=== PATIENT | female | born 1980 | race Caucasian/White ===

== ENCOUNTER 2020-08-03 09:27 | Inpatient (IN) | payer OTHER ==
[~2020-08-03] VITALS: Ht 152.4 cm; Wt 67.2 kg
--- NOTE | ~2020-08-03 | PROC ---
[address] [address] PROCEDURE REPORT Name: CALIXTO HALE Room: [address] IN M.R.#: [id number] Admission: 08/03/20 Attend Phys: Karthik Huber MD Discharge: 08/05/20 Date of : 84 Report #: [id number] THIS REPORT FOR: cc: FAM - No family physician/PCP FAM - No family physician/PCP ~ [facility],Medical Records Staff For GI report, please see the Provation report in Perceptive 7 content. By: 1452Medical Records Staff [facility] /MARGARITA
[2020-08-03 09:38] VITALS: BP 118/61
[2020-08-03 09:52] LABS: HEMATOCRIT 27.5 % (37.0-47.0); HEMOGLOBIN 9.2 gm/dL (12.0-15.0); MCH 32.5 pg (26.0-34.0); MCHC 33.6 g/dL (28.0-37.0); MCV 96.8 fL (80.0-100.0); MPV 8.5 fl. (7.2-11.1); NUCLEATED RBCS 0 /100WBC; PLATELET COUNT* 258 thou/uL (150-400); RBC 2.84 mil/uL (4.20-5.00); RDW-CV 21.1 % (10.5-14.5); WBC 27.2 thou/uL (4.0-11.0)
[2020-08-03 10:12] LABS: CALCIUM 8.4 mg/dL (8.5-10.1); POTASSIUM 4.1 mmol/L (3.5-5.1)
[2020-08-03 10:13] LABS: URINE BLOOD NEGATIVE (Negative); URINE COLOR YELLOW; URINE GLUCOSE-RANDOM TRACE (Negative); URINE KETONES NEGATIVE (Negative); URINE LEUKOCYTES-REFLEX NEGATIVE (Negative); URINE NITRITE-REFLEX NEGATIVE (Negative); URINE PROTEIN NEGATIVE (Negative); URINE SPECIFIC GRAVITY >= 1.030 (1.005-1.030); URINE UROBILINOGEN 0.2 E.U./dl (0.2-1.0)
[2020-08-03 10:17] LABS: ICTOTEST (BILI CONFIRMATORY) Positive (Negative); URINE BILIRUBIN 2+ (Negative); URINE CLARITY HAZY
[2020-08-03 10:24] LABS: AMORPHOUS URATES Many /LPF (None Seen); BACTERIA-REFLEX 1-9 Few /HPF (None Seen); CASTS None Seen /LPF (None Seen); MUCUS 0-3 Light strn/LPF (None Seen); SQUAMOUS 0-3 Few /LPF (0-3); URINE RBC 0-2 Rare /HPF (0-2); URINE WBC-REFLEX 0-5 Rare /HPF (0-5)
[2020-08-03 10:25] LABS: ALBUMIN 1.7 g/dL (3.4-5.0); TOTAL BILIRUBIN 26.6 mg/dL (<0.1-1.0); TOTAL PROTEIN 6.7 g/dL (6.4-8.2)
[2020-08-03 10:38] LABS: ABSOLUTE BASOPHILS 0.3 thou/uL (0.0-0.2); ABSOLUTE LYMPHOCYTES 1.4 thou/uL (0.8-5.3); ABSOLUTE NEUTROPHILS 22.6 thou/uL (1.6-8.1); HYPOCHROMASIA 1+; PLATELET ESTIMATE ADEQUATE; TARGET CELLS 1+
[2020-08-03 10:39] LABS: ANISOCYTOSIS 1+; POIKILOCYTOSIS 1+
[2020-08-03 11:26] LABS: APTT 59.3 Seconds (25.0-31.3); INR 2.1; PROTIME 21.6 Seconds (9.20-11.50)
[2020-08-03] MEDS ORDERED: ANTIBIOTIC (11:50)
[2020-08-03] MEDS ORDERED: GABAPENTIN100 MG PO (11:50)
[2020-08-03] MEDS ORDERED: LASIX 20 MG TAB20 MG PO (11:50)
[2020-08-03] MEDS ORDERED: LEXAPRO20 MG PO (11:50)
[2020-08-03] MEDS ORDERED: SPIRONOLACTONE50 MG PO (11:50)
[2020-08-03 13:54] LABS: URINE POTASSIUM-RANDOM 61.3 mmol/L
[2020-08-03 15:11] VITALS: BP 98/32
[2020-08-03 16:32] LABS: BF RBC <1000 /mm3; TOTAL CELL COUNT 30 /mm3
[2020-08-03 16:53] LABS: CLARITY SLIGHTLY HAZY; TOTAL VOLUME 4800 ml
[2020-08-03 16:58] VITALS: BP 103/63
--- NOTE | 2020-08-03 16:58 | EKG ---
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 : 1980 Requested By: Joon Cardenas Order Number: [id number] MD: Dez Cordoba Measurements Intervals [place] Rate: 101 P: 35 OR: 137 QRS: 7 QRSD: 90 T: 11 QT: 363 QTc: 471 Interpretive Statements Sinus tachycardia Borderline T abnormalities, inferior leads Baseline wander in lead(s) II,III,aVF No previous ECG available for comparison Electronically Signed On 08-03-2020 16:58:10 [employer] DEVELOPER by Dez Cordoba [email or web address] <ELECTRONICALLY SIGNED> By: Dez Cordoba MD, [facility] 08/03/20 1658 0941 0941 Dez Cordoba MD, [facility] /EPI
[2020-08-03 17:12] LABS: BF LYMPHOCYTES 54 %; BF MONOCYTES 41 %; BF POLYS 5 %; BF TISSUE 11 /100 WBC; SOURCE ASCITES
[2020-08-03 20:00] VITALS: BP 84/33
[2020-08-04] VITALS (13 sets, daily range): BP systolic 47–112; BP diastolic 14–52
[2020-08-04 04:09] LABS: ABSOLUTE BASOPHILS 0.3 thou/uL (0.0-0.2); ABSOLUTE EOSINOPHILS 0.4 thou/uL (0.0-0.7); ABSOLUTE LYMPHOCYTES 3.1 thou/uL (0.8-5.3); ABSOLUTE MONOCYTES 1.7 thou/uL (0.0-1.2); ABSOLUTE NEUTROPHILS 22.9 thou/uL (1.6-8.1); BASOPHILS 1.2 %; EOSINOPHILS 1.4 %; LYMPHOCYTES 10.8 %; MCH 32.7 pg (26.0-34.0); MCHC 33.1 g/dL (28.0-37.0); MCV 98.7 fL (80.0-100.0); MPV 8.5 fl. (7.2-11.1); NUCLEATED RBCS 0 /100WBC; PLATELET COUNT* 199 thou/uL (150-400); POLYS 80.6 %; RBC 1.85 mil/uL (4.20-5.00); RDW-CV 21.4 % (10.5-14.5); WBC 28.4 thou/uL (4.0-11.0)
[2020-08-04 04:43] LABS: CALCIUM 7.7 mg/dL (8.5-10.1); POTASSIUM 4.7 mmol/L (3.5-5.1)
[2020-08-04 04:46] LABS: CREATININE 4.1 mg/dL (0.6-1.3)
[2020-08-04 05:08] LABS: HEMATOCRIT 18.3 % (37.0-47.0); HEMOGLOBIN 6.1 gm/dL (12.0-15.0)
[2020-08-04 06:28] LABS: ANISOCYTOSIS 1+; PLATELET ESTIMATE ADEQUATE
[2020-08-04 09:06] LABS: MCH 33.1 pg (26.0-34.0); MCHC 32.3 g/dL (28.0-37.0); MCV 102.4 fL (80.0-100.0); RBC 1.73 mil/uL (4.20-5.00); WBC 34.7 thou/uL (4.0-11.0)
[2020-08-04 09:12] LABS: HEMATOCRIT 17.7 % (37.0-47.0); HEMOGLOBIN 5.7 gm/dL (12.0-15.0)
--- NOTE | 2020-08-04 14:24 | CON ---
[address] [address] CONSULTATION Name: ALEXIACALIXTO Roya Room: [address] IN M.R.#: [id number] Admission: 08/03/20 Attend Phys: Karthik Huber MD Discharge: Date of : 84 Report #: [id number] THIS REPORT FOR: cc: FAM - No family physician/PCP FAM - No family physician/PCP ~ Lisbeth Willis MD DATE OF SERVICE: 08/04/2020 GI CONSULTATION CONSULTING PHYSICIAN: Lisbeth Willis MD. PCP: She is followed at [facility] and has no primary care provider. The patient was personally seen and examined by me. REASON FOR CONSULTATION: GI bleed, hyperbilirubinemia and ascites. HISTORY OF PRESENT ILLNESS: The patient is a 40-year-old who presented to the Emergency Department with jaundice and abdominal discomfort with distention. She states that she is being followed at [facility] over the last 2 or more months for abdominal pain and discomfort and she has a history of having a paracentesis done previously. She is fully aware that she has end-stage liver failure. She admits to excessive amounts of drinking of at least 1 bottle of wine and several shots of hard liquor daily. She is complaining of significant abdominal pain and tenderness and has lower extremity edema. She is very jaundiced at this point. She has continued to drink heavily despite being aware of her ongoing liver failure. She reports that her father 2 years ago and over the last 5-6 months, her alcohol intake has increased significantly. She also reports that she has had nausea with associated vomiting with reports of blood and coffee-ground emesis. PAST MEDICAL HISTORY: Significant for hysterectomy, 4 live births, and paracentesis performed at [facility]. PAST SOCIAL HISTORY: As stated before, a bottle of wine and at least 2 shots daily. ALLERGIES: No known allergies. PHYSICAL ASSESSMENT: HEART: Rate and rhythm are regular. 1+ dorsalis pedis pulses, 2+ radial pulses. LUNGS: Clear [place] [address] CONSULTATION Name: CALIXTO HALE Room: [address] IN [facility]#: [id number] Admission: 08/03/20 Attend Phys: Karthik Huber MD Discharge: Date of : 84 Report #: [id number] GASTROINTESTINAL: Abdomen is severely distended, positive fluid wave. LOWER EXTREMITIES: 2+ edema, jaundice. 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 MELD score is 40 showing a 71.3% mortality over the next 3 months. Her disseminated fraction score was 75. LABORATORY DATA: Bilirubin 26.6. White blood cell count 28.4, hemoglobin 5.7, platelets 199. Ammonia less than 10. BUN 48, creatinine 4.1, GFR 12. INR 2.1. AST 204, ALT 27, alkaline phosphatase 216, albumin 1.7. Sodium currently 132. ASSESSMENT: 1. Acute gastrointestinal bleed. 2. Nausea and vomiting with blood and coffee-ground emesis. 3. End-stage liver disease. 4. Large ascites with previous paracentesis at [facility]. PLAN: 1. EGD for assessment of acute upper GI bleed and varices. 2. Transfuse red blood cells. 3. Octreotide IV infusion continuous. 4. Continuous Protonix infusion. 5. Possible palliative consult. Thank you for allowing us to participate in the care of this kind 40-year-old female patient. Further recommendations to be made after the EGD today with Dr. Willis and blood transfusion. <ELECTRONICALLY SIGNED> By: Lisbeth Willis MD 08/04/20 1424 0926 0949Lisbeth Willis MD /nt
[2020-08-04 15:44] LABS: EOSINOPHILS 0.5 %; HEMATOCRIT 24.6 % (37.0-47.0); LYMPHOCYTES 9.5 %; MCH 31.6 pg (26.0-34.0); MCHC 32.1 g/dL (28.0-37.0); MCV 98.6 fL (80.0-100.0); MONOCYTES 3.1 %; MPV 8.9 fl. (7.2-11.1); NUCLEATED RBCS 0 /100WBC; PLATELET COUNT* 207 thou/uL (150-400); POLYS 85.9 %; RDW-CV 19.8 % (10.5-14.5)
[2020-08-04 15:49] LABS: PROTIME 29.8 Seconds (9.20-11.50)
[2020-08-04 15:55] LABS: ALBUMIN 1.5 g/dL (3.4-5.0); CREATININE 4.6 mg/dL (0.6-1.3); TOTAL BILIRUBIN 21.4 mg/dL (<0.1-1.0); TOTAL PROTEIN 4.5 g/dL (6.4-8.2)
[2020-08-04 16:06] LABS: ABSOLUTE BASOPHILS 0.4 thou/uL (0.0-0.2); ABSOLUTE EOSINOPHILS 0.2 thou/uL (0.0-0.7); ABSOLUTE LYMPHOCYTES 4.2 thou/uL (0.8-5.3); ABSOLUTE MONOCYTES 1.4 thou/uL (0.0-1.2); ABSOLUTE NEUTROPHILS 37.7 thou/uL (1.6-8.1); HEMOGLOBIN 7.9 gm/dL (12.0-15.0); WBC 43.9 thou/uL (4.0-11.0)
[2020-08-04 17:41] LABS: BE -25.9 mmol/L (-2 to +3); PCO2 24.9 mmHg (35.0-45.0)
[2020-08-04 17:48] LABS: PO2 59.5 mmHg (75.0-100.0); pH 6.917 (7.340-7.450)
[2020-08-04 19:20] LABS: CALCIUM 7.4 mg/dL (8.5-10.1); CREATININE 4.8 mg/dL (0.6-1.3); POTASSIUM 5.5 mmol/L (3.5-5.1)
[2020-08-05] VITALS (24 sets, daily range): BP systolic 61–87; BP diastolic 17–24
[2020-08-05 07:19] LABS: ABSOLUTE BASOPHILS 0.3 thou/uL (0.0-0.2); ABSOLUTE EOSINOPHILS 0.2 thou/uL (0.0-0.7); ABSOLUTE LYMPHOCYTES 5.8 thou/uL (0.8-5.3); ABSOLUTE MONOCYTES 1.1 thou/uL (0.0-1.2); ABSOLUTE NEUTROPHILS 32.2 thou/uL (1.6-8.1); BASOPHILS 0.8 %; EOSINOPHILS 0.6 %; LYMPHOCYTES 14.6 %; MCH 31.9 pg (26.0-34.0); MCHC 29.8 g/dL (28.0-37.0); MONOCYTES 2.8 %; MPV 9.4 fl. (7.2-11.1); NUCLEATED RBCS 0 /100WBC; PLATELET COUNT* 174 thou/uL (150-400); POLYS 81.2 %; RBC 1.36 mil/uL (4.20-5.00); RDW-CV 22.9 % (10.5-14.5); WBC 39.7 thou/uL (4.0-11.0)
[2020-08-05 07:23] LABS: HEMATOCRIT 14.5 % (37.0-47.0); HEMOGLOBIN 4.3 gm/dL (12.0-15.0)
[2020-08-05 07:26] LABS: PREALBUMIN 5.9 mg/dL (18.0-35.7)
[2020-08-05 08:06] LABS: ALBUMIN 1.9 g/dL (3.4-5.0); ALKALINE PHOSPHATASE 100 U/L (46-116); ANION GAP 32 mmol/L (7-16); BUN 49 mg/dL (7-18); CALCIUM 7.6 mg/dL (8.5-10.1); CHLORIDE 98 mmol/L (98-107); CREATININE 5.3 mg/dL (0.6-1.3); GLUCOSE 113 mg/dL (70-99); SGPT 94 U/L (30-65); SODIUM 135 mmol/L (136-145); TOTAL BILIRUBIN 17.3 mg/dL (<0.1-1.0); TOTAL PROTEIN 4.1 g/dL (6.4-8.2)
[2020-08-05 08:14] LABS: CO2 < 5 mmol/L (21-32); POTASSIUM 7.2 mmol/L (3.5-5.1); SGOT 1683 U/L (15-37)
[2020-08-05 14:07] LABS: BODY FLUID PROTEIN 0.9 g/dL (())
--- NOTE | 2020-08-05 15:08 | PATH ---
[address] [address] PATHOLOGY RPT PROCEDURE Name: CALIXTO HALE Room: [address] IN [facility]#: [id number] Admission: 08/03/20 Date of : 84 Discharge: 08/05/20 Report #: [id number] Path Case #: [id number] Note [facility] Accession Number: [id number] TESTS RESULT FLAG UNITS REF RANGE LAB Clinician Provided Cytology Information No. of containers..01 Other (Miscellaneous) Source: ASCITES DIAGNOSIS: 02 ASCITES NEGATIVE FOR MALIGNANT CELLS. LOW CELLULARITY WITH FEW MESOTHELIAL CELLS AND INFLAMMATORY CELLS. THIS INTERPRETATION INCLUDES EVALUATION OF A CELL BLOCK. Signed out by: 02 Jorge Luis Orozco MD, Pathologist NPI- [id number] Performed by: 01 Ronal Metcalf, Electronic Calibration Technician ([facility]) Gross description: 01 90ML, ORANGE, 1TP 1CB /LCS 08/04/2020 0713 Local FLAG LEGEND: L-Low Normal,H-High Normal,LL-Alert Low,HH-Alert High <-Panic Low,>-Panic High,A-Abnormal,AA-Critical Abnormal Performed at: [address] [place] [address] Dm Boo MD, [address] [place] [address] [address] [facility], [place] [address] Jorge Luis Orozco MD, Specimen Comment: A courtesy copy of this report has been sent to [phone] Specimen Comment: Report sent to DR ELDER Specimen Comment: A duplicate report has been generated due to demographic updates. Performed at: [address], [place], [place] [id number] MD Dm Boo MD Phone: [phone]
== END 2020-08-05 09:25 | DRG 871 ==
LOC: M.ERS 09:27 → M.TBA-ER 11:35 → M.2W 15:07 → M.ICU 08-04 15:55
PROVIDERS: Family Medicine; Internal Medicine Gastroenterology; Internal Medicine Nephrology; Nurse Practitioner Family; ADMIT Internal Medicine; ATTEND Internal Medicine
PROC: 0W9G3ZZ Drainage of Peritoneal Cavity, Percutaneous Approach (ICD-10-PCS; principal; 2020-08-03)
PROC: 05HY33Z Insertion of Infusion Device into Upper Vein, Percutaneous Approach (ICD-10-PCS; principal; 2020-08-03)
PROC: 5A09357 Assistance with Respiratory Ventilation, Less than 24 Consecutive Hours, Continuous Positive Airway Pressure (ICD-10-PCS; 2020-08-04)
PROC: 30233N1 Transfusion of Nonautologous Red Blood Cells into Peripheral Vein, Percutaneous Approach (ICD-10-PCS; 2020-08-04)
PROC: 0DJ08ZZ Inspection of Upper Intestinal Tract, Via Natural or Artificial Opening Endoscopic (ICD-10-PCS; 2020-08-04)
DX: A41.9 Sepsis, unspecified organism (principal); I85.01 Esophageal varices with bleeding; N17.0 Acute kidney failure with tubular necrosis; R18.8 Other ascites; E87.1 Hypo-osmolality and hyponatremia; K76.6 Portal hypertension; G93.40 Encephalopathy, unspecified; K70.40 Alcoholic hepatic failure without coma; Z90.710 Acquired absence of both cervix and uterus; E80.6 Other disorders of bilirubin metabolism; K74.60 Unspecified cirrhosis of liver; K44.9 Diaphragmatic hernia without obstruction or gangrene; K31.89 Other diseases of stomach and duodenum; Z20.828 Contact with and (suspected) exposure to other viral communicable diseases; Z66 Do not resuscitate; Z51.5 Encounter for palliative care; Z79.899 Other long term (current) drug therapy